=== PATIENT | female | born 1940 | race Caucasian/White ===

== ENCOUNTER 2021-03-08 02:17 | Inpatient (IN) | payer OTHER ==
[~2021-03-08] VITALS: Ht 157.5 cm; Wt 68.0 kg
--- NOTE | ~2021-03-08 | CON ---
[address] [address] CONSULTATION Name: ASUNCION SALINAS Room: [place] [address] ADM IN M.R.#: [id number] Admission: 03/08/21 Attend Phys: César Stringer Discharge: Date of : 44 Report #: [id number] THIS REPORT FOR: cc: Omkar Bonilla MD,Omkar Pastor,Sj Rodríguez MD ~ DATE OF CONSULTATION: 03/08/2021 HISTORY OF PRESENT ILLNESS: A 80-year-old female patient who was evaluated by me for an episode of TIA or stroke. Her history is somewhat poor, but she says her symptoms are going on for 2-3 days. Her symptoms started with nausea, vomiting and then she had some speech difficulty about 2 days ago. She had a stroke 4 weeks ago. She had another stroke prior to that, but does not remember what time she was in [facility] and I do not have any records from [facility]. Now, she is better after getting admitted. Review of systems indicate that she has a pacemaker put in 2-3 months ago. That was also at [facility]. It got complication because it got infected. She has weakness on the left side, which is residual from the last stroke and some speech difficulty. She had reoccurrence of the symptoms, but then they became better. She has a history of diabetes, myocardial infarctions, arthritis, stroke and pacemaker. Later on during examination, it would appear that her memory was poor. REVIEW OF SYSTEMS: A 14-point review of systems was carried out. She does not complain of any new eye, ENT, respiratory symptoms. Her urinalysis was noticed. She is not complaining of any new musculoskeletal, dermatological, hematological, psychiatric, throat, allergic symptom associated with present symptomatology. PAST MEDICAL HISTORY: Positive for stroke, but the records are not available. FAMILY HISTORY: Unremarkable. SOCIAL HISTORY: She says she does not drink alcohol. PHYSICAL EXAMINATION: She is alert. She could not tell me what month it is. She could tell me what hospital it is. Her memory was poor and she was pretty slow. Her speech was also hesitant, but she said it is going on for a couple of days and some of it is residual from the last stroke. Cranial nerve examination looks mostly unremarkable. On my examination, she is weak all over, but she is not any markedly weak on the left side as compared to the right side. She was able to move her foot up and down. She has a good position sense. Reflexes are present. Plantar is difficult to tell. She has may be withdrawal, may be upgoing and if it is, it is on both sides. I could not look at the fundus. There is no meningeal sign. There is no carotid bruit. There is no thyroid mass. She is moderately built individual. She [place] [address] CONSULTATION Name: ASUNCION SALINAS Room: [address] IN M.R.#: [id number] Admission: 03/08/21 Attend Phys: Césra Stringer Discharge: Date of : 44 Report #: [id number] features of eyes, ears and face. Blood pressure is ____, respirations 14, pulse is 91, temperature is 97.5. Her pulses are palpable. She has no edema. Her hearing and vision looks adequate. She has no dysmorphic features of eyes, ears and face. LABORATORY DATA: She had a CT scan of the head without contrast, which demonstrates atrophy and small vessel disease with what looks like prior strokes. Lab is significant for the fact that her GFR is only 20. I do not know what her baseline is. IMPRESSION: The patient with some stroke-like symptoms going on for couple of 3 days and another stroke about 4 weeks ago. She also appeared to have dementia as her memory is poor. She had all this workup recently in [facility] and we will try to get those records from them. This patient is not any candidate for TPA or intervention because symptoms are going on from a couple of days at least and she had another stroke 4 weeks ago. We cannot do an MRI in this patient because she has a pacemaker. We need to find out if it is MRI compatible or not. Even if it is MRI compatible, it will take several days to set it up by the protocol of the hospital. We cannot do a CT angio in this patient because GFR is only 20. I will suggest treating her kidney failure, hypertension, urinary tract infection which she has and diabetes. We will see how much she improves. I did do a carotid Doppler and hopefully we can get records from [facility] and we will leave further recommendations after doing those. Thank you very much for this referral. By: 1626 Sj Pastor MD /liam
[2021-03-08 02:32] VITALS: BP 167/91
[2021-03-08 02:53] LABS: ABSOLUTE BASOPHILS 0.1 thou/uL (0.0-0.2); ABSOLUTE EOSINOPHILS 0.1 thou/uL (0.0-0.7); ABSOLUTE LYMPHOCYTES 2.2 thou/uL (0.8-5.3); ABSOLUTE MONOCYTES 0.9 thou/uL (0.0-1.2); ABSOLUTE NEUTROPHILS 5.4 thou/uL (1.6-8.1); EOSINOPHILS 1.3 %; HEMATOCRIT 40.8 % (37.0-47.0); HEMOGLOBIN 13.5 gm/dL (12.0-15.0); LYMPHOCYTES 25.2 %; MCH 29.3 pg (26.0-34.0); MCV 88.7 fL (80.0-100.0); MONOCYTES 10.7 %; MPV 7.6 fl. (7.2-11.1); NUCLEATED RBCS 0 /100WBC; PLATELET COUNT* 311 thou/uL (150-400); POLYS 61.8 %; RDW-CV 16.2 % (10.5-14.5); WBC 8.8 thou/uL (4.0-11.0)
[2021-03-08 02:58] LABS: CALCIUM 9.5 mg/dL (8.5-10.1); CREATININE 2.4 mg/dL (0.6-1.3); POTASSIUM 4.1 mmol/L (3.5-5.1)
[2021-03-08 03:02] LABS: URINE BILIRUBIN NEGATIVE (Negative); URINE BLOOD 3+ (Negative); URINE CLARITY CLOUDY; URINE COLOR YELLOW; URINE GLUCOSE-RANDOM 1+ (Negative); URINE KETONES TRACE (Negative); URINE LEUKOCYTES-REFLEX TRACE (Negative); URINE NITRITE-REFLEX NEGATIVE (Negative); URINE PROTEIN 3+ (Negative); URINE SPECIFIC GRAVITY 1.025 (1.005-1.030); URINE UROBILINOGEN 0.2 E.U./dl (0.2-1.0)
[2021-03-08 03:03] LABS: ALBUMIN 3.2 g/dL (3.4-5.0); MAGNESIUM 2.4 mg/dL (1.8-2.4); TOTAL BILIRUBIN 0.4 mg/dL (<0.1-1.0); TOTAL PROTEIN 7.9 g/dL (6.4-8.2)
[2021-03-08 03:14] LABS: CASTS None Seen /LPF (None Seen); SQUAMOUS 0-3 Few /LPF (0-3)
[2021-03-08 03:17] LABS: BACTERIA-REFLEX >30 Many /HPF (None Seen); CRYSTALS None Seen /LPF (None Seen); URINE RBC 3-10 Few /HPF (0-2)
[2021-03-08 03:18] LABS: YEAST-REFLEX Present (None Seen)
[2021-03-08] MEDS ORDERED: TYLENOL325 MG PO (07:49)
[2021-03-08] MEDS ORDERED: LIPITOR40 MG PO (07:50)
[2021-03-08] MEDS ORDERED: ALLOPURINOL 10100 M3 PO (07:50)
[2021-03-08] MEDS ORDERED: ASA81BEC PO (07:50)
[2021-03-08] MEDS ORDERED: NORVASC 2.5 MG2.5 MG PO (07:50)
[2021-03-08] MEDS ORDERED: CARVEDILOL3.125 MG PO (07:51)
[2021-03-08] MEDS ORDERED: CETIRIZINE HCL10 MG PO (07:52)
[2021-03-08] MEDS ORDERED: ELIQUIS5 MG PO (07:53)
[2021-03-08] MEDS ORDERED: COLESTIPOL HCL1 G1 PO (07:53)
[2021-03-08] MEDS ORDERED: FUROSEMIDE 20 M20 MG PO (07:53)
[2021-03-08] MEDS ORDERED: NEURONTIN 300M300 M2 PO ×2 (07:54)
[2021-03-08] MEDS ORDERED: GLUCOTROL5 MG PO (07:55)
[2021-03-08] MEDS ORDERED: HUMALOG100 UNIT/1 SUBQ ×2 (07:56→07:57)
[2021-03-08] MEDS ORDERED: LEVEMIR FL100 UNIT/2 SUBQ (07:56)
[2021-03-08] MEDS ORDERED: SINGULAIR 10 MG10 MG PO (07:58)
[2021-03-08] MEDS ORDERED: PHENERGAN 25 MG25 MG PO (07:59)
[2021-03-08] MEDS ORDERED: SPIRONOLACTONE25 MG PO (07:59)
[2021-03-08] MEDS ORDERED: FLOMAX0.4 MG PO (08:00)
[2021-03-08] MEDS ORDERED: TRAMADOL 50 MG50 MG PO (08:01)
[2021-03-08 09:00] VITALS: BP 191/79
[2021-03-08 13:00] VITALS: BP 153/72
[2021-03-08 16:17] VITALS: BP 196/91
[2021-03-08 17:20] VITALS: BP 169/78
[2021-03-08 20:04] VITALS: BP 164/78
[2021-03-09] VITALS (8 sets, daily range): BP systolic 140–176; BP diastolic 65–85
[2021-03-09 04:16] LABS: HEMATOCRIT 34.5 % (37.0-47.0); MCH 29.7 pg (26.0-34.0); MCHC 32.8 g/dL (28.0-37.0); MCV 90.5 fL (80.0-100.0); MPV 7.7 fl. (7.2-11.1); RBC 3.81 mil/uL (4.20-5.00); RDW-CV 16.4 % (10.5-14.5); WBC 7.1 thou/uL (4.0-11.0)
[2021-03-09 04:33] LABS: ALBUMIN 2.4 g/dL (3.4-5.0); ALKALINE PHOSPHATASE 63 U/L (46-116); ANION GAP 8 mmol/L (7-16); BUN 35 mg/dL (7-18); CALCIUM 8.1 mg/dL (8.5-10.1); CHLORIDE 109 mmol/L (98-107); CHOLESTEROL 190 mg/dL (<200); CO2 24 mmol/L (21-32); CREATININE 2.2 mg/dL (0.6-1.3); GLUCOSE 176 mg/dL (70-99); HDL CHOLESTEROL 35 mg/dL (>40); LDL CHOLESTEROL 88 mg/dL (<100); POTASSIUM 3.9 mmol/L (3.5-5.1); SGOT 13 U/L (15-37); SGPT 20 U/L (30-65); SODIUM 141 mmol/L (136-145); TC:HDL 5.4 Ratio (Not establshd); TOTAL BILIRUBIN 0.2 mg/dL (<0.1-1.0); TOTAL PROTEIN 6.2 g/dL (6.4-8.2); TRIGLYCERIDE 338 mg/dL (<150); VLDL 68 mg/dL (<40)
[2021-03-09 04:35] LABS: HEMOGLOBIN 11.3 gm/dL (12.0-15.0)
[2021-03-09 04:41] LABS: SERUM ASSESSMENT CLEAR
--- NOTE | 2021-03-09 08:07 | EKG ---
[place] [address] ELECTROCARDIOGRAM REPORT Name: ASUNCION SALINAS Room: [place] [address] ADM IN M.R.#: [id number] Admission: 03/08/21 Attend Phys: Matthew Edouard Discharge: Date of : 44 Date of Service: 03/08/215 Report #: [id number] THIS REPORT FOR: //name// [facility] ED Test Date: 2021-03-08 Test Time: 02:25:04 Pat Name: ASUNCION SALINAS Department: Room: [facility] Gender: F Dyno Technician: MR : 1940 Requested By: Nikki Mccracken Order Number: [id number] MD: Prudencio Otto Measurements Intervals [place] Rate: 81 P: 223 VT: 144 QRS: 32 QRSD: 81 T: 117 QT: 363 QTc: 422 Interpretive Statements Ectopic atrial rhythm Nonspecific ST segment changes no previous ECG available for comparison Electronically Signed On 03-09-2021 8:07:31 CDT by Prudencio Otto [email or web address] <ELECTRONICALLY SIGNED> By: Prudencio Otto MD, [facility] 03/09/2107 4 4 Prudencio Otto MD, [facility] /EPI
[2021-03-09] MEDS ORDERED: FELODIPINE 5 MG5 M1 PO (12:20)
[2021-03-09] MEDS ORDERED: REGLAN 10 MG TA10 MG PO (12:20)
[2021-03-09] MEDS ORDERED: CEFDINIR300 MG PO (12:24)
--- NOTE | 2021-03-09 13:54 | 2DMMODE ---
[place] [address] 2 D/M-MODE ECHOCARDIOGRAM Name: ASUNCION SALINAS Room: [place] [address] ADM IN [place]#: [id number] Admission: 03/08/21 Attend Phys: Matthew Edouard Discharge: Date of : 44 Date of Service: 03/09/21 1353 Report #: [id number] THIS REPORT FOR: cc: Omkar Bonilla MD, Thomas MD Liston, Michael J. MD [facility] ~ APPROVED REPORT Study performed: 03/09/2021 11:32:33 EXAM: Comprehensive 2D, Doppler, and color-flow Echocardiogram Patient Location: In-Patient Room #: [facility] Status: routine BSA: 1.69 HR: 76 bpm BP: 155/85 mmHg Rhythm: NSR Other Information Study Quality: Good Indications CVA/TIA Echo Enhancing Agent Indication: Rule out Shunt Agent(s) / Amount(s) Used: Agitated Saline 10 cc 2D Dimensions IVSd: 12.70 (7-11mm) LVOT Diam: 19.14 (18-24mm) LVDd: 37.48 mm PWd: 9.93 (7-11mm) Ascending Ao: 30.99 (22-36mm) LVDs: 21.03 (25-40mm) Aortic Root: 30.48 mm Volumes Left Atrial Volume (Systole) LA ESV Index: 36.80 mL/m2 Aortic Valve AoV Peak Sukhdev.: 1.68 m/s AO Peak Gr.: 11.26 mmHg LVOT Max P.28 mmHg AO Mean Gr.: 6.02 mmHg LVOT Mean P.90 [place] [address] 2 D/M-MODE ECHOCARDIOGRAM Name: BRADASUNCION Room: [address] IN .R.#: [id number] Admission: 03/08/21 Attend Phys: Matthew Edouard Discharge: Date of : 44 Date of Service: 03/09/21 1353 Report #: [id number] LVOT Max V: 1.03 m/s AO V2 VTI: 31.44 cm LVOT Mean V: 0.62 m/s MIESHA (VTI): 2.01 cm2 LVOT V1 VTI: 21.94 cm Mitral Valve MV Mean Gr.: 2.99 mmHg E/A Ratio: 1.44 MV Decel. Time: 220.19 ms MV E Max Sukhdev.: 1.46 m/s MV PHT: 63.86 ms MVA (PHT): 3.45 cm2 TDI E/Lateral E': 16.22 E/Medial E': 29.20 Medial E' Sukhdev.: 0.05 m/s Lateral E' Sukhdev.: 0.09 m/s Pulmonary Valve PV Peak Sukhdev.: 0.82 m/s PV Peak Gr.: 2.68 mmHg Tricuspid Valve RAP Estimate: 5.00 mmHg TR Peak Gr.: 34.90 mmHg RVSP: 39.00 mmHg PA Pressure: 39.00 mmHg Left Ventricle The left ventricle is normal size. There is normal LV segmental wall motion. Mild concentric left ventricular hypertrophy. Left ventricular systolic function is normal. LVEF is 60-65%. Transmitral Doppler flow pattern suggests impaired LV relaxation. Right Ventricle The right ventricle is normal size. The right ventricular systolic function is normal. Pacemaker lead is present in the right ventricle. Atria Left atrium is mildly dilated. The interatrial septum is intact with no evidence for an atrial septal defect. The right atrium size is normal. Aortic Valve Moderate aortic valve sclerosis. Trace aortic regurgitation. Mild aortic stenosis. Mitral Valve There is mitral annular calcification. There is no mitral valve regurgitation noted. No evidence of [place] [address] 2 D/M-MODE ECHOCARDIOGRAM Name: ASUNCION SALINAS Room: [address] IN M.R.#: [id number] Admission: 03/08/21 Attend Phys: Matthew Edouard Discharge: Date of : 44 Date of Service: 03/09/21 1353 Report #: [id number] Tricuspid Valve The tricuspid valve is normal in structure. Mild tricuspid regurgitation. The RVSP is 40-45 mmHg. Pulmonic Valve The pulmonary valve is normal in structure. Mild pulmonic regurgitation. Great Vessels The aortic root is normal in size. IVC is normal in size and collapses >50% with inspiration. Pericardium There is no pericardial effusion. <Conclusion> The left ventricle is normal size. Mild concentric left ventricular hypertrophy. Left ventricular systolic function is normal. LVEF is 60-65%. Transmitral Doppler flow pattern suggests impaired LV relaxation. Left atrium is mildly dilated. Moderate aortic valve sclerosis. Trace aortic regurgitation. Mild aortic stenosis. There is mitral annular calcification. Mild tricuspid regurgitation. The RVSP is 40-45 mmHg. Mild pulmonic regurgitation. IVC is normal in size and collapses >50% with inspiration. The interatrial septum is intact with no evidence for an atrial septal defect. Pacemaker lead is present in the right ventricle. <ELECTRONICALLY SIGNED> By: Prudencio Otto MD, FACC 03/09/21 1353 1353 1353 Prudencio Otto MD, FACC /INF
[2021-03-11 05:07] LABS: GLYCOHEMOGLOBIN (HGB A1C) 11.7 % (4.8-5.6)
== END 2021-03-09 14:11 | disposition home health service (06) | DRG 690 ==
LOC: M.ERS 02:17 → M.TBA-ER 05:06 → M.2W 16:27
PROVIDERS: Internal Medicine; Personal Emergency Response Attendant; ADMIT Internal Medicine; ATTEND Internal Medicine
DX: N39.0 Urinary tract infection, site not specified (principal); N18.4 Chronic kidney disease, stage 4 (severe); E44.1 Mild protein-calorie malnutrition; N17.9 Acute kidney failure, unspecified; A08.4 Viral intestinal infection, unspecified; Z20.822 Contact with and (suspected) exposure to COVID-19; M19.90 Unspecified osteoarthritis, unspecified site; E11.22 Type 2 diabetes mellitus with diabetic chronic kidney disease; R31.9 Hematuria, unspecified; E11.65 Type 2 diabetes mellitus with hyperglycemia; E11.43 Type 2 diabetes mellitus with diabetic autonomic (poly)neuropathy; K31.84 Gastroparesis; I12.9 Hypertensive chronic kidney disease with stage 1 through stage 4 chronic kidney disease, or unspecified chronic kidney disease; Z86.73 Personal history of transient ischemic attack (TIA), and cerebral infarction without residual deficits; I25.2 Old myocardial infarction; Z95.0 Presence of cardiac pacemaker; Z88.8 Allergy status to other drugs, medicaments and biological substances; Z28.21 Immunization not carried out because of patient refusal